=== PATIENT | female | born 1965 | race Caucasian/White ===

== ENCOUNTER → 2016-09-27 | Outpatient (CLI) | payer BC, OTHER | LOC: RAD 03:31 | DX: Z12.31 Encounter for screening mammogram for malignant neoplasm of breast (principal) ==

== ENCOUNTER → 2018-03-19 | Outpatient (CLI) | payer OTHER | LOC: RAD 06:59 | DX: Z12.31 Encounter for screening mammogram for malignant neoplasm of breast (principal) ==

== ENCOUNTER → 2018-04-09 | Outpatient (CLI) | payer OTHER | LOC: ULTRA 03:54 | DX: N60.02 Solitary cyst of left breast (principal); R92.8 Other abnormal and inconclusive findings on diagnostic imaging of breast ==

== ENCOUNTER → 2019-04-26 | Outpatient (CLI) | payer OTHER | LOC: RAD 02:26 | DX: Z12.31 Encounter for screening mammogram for malignant neoplasm of breast (principal) ==

== ENCOUNTER → 2020-05-23 | Outpatient (CLI) | payer OTHER | LOC: BC 07:58 | DX: Z12.31 Encounter for screening mammogram for malignant neoplasm of breast (principal) ==

== ENCOUNTER → 2021-06-26 | Outpatient (CLI) | payer OTHER | LOC: BC 10:04 | DX: Z12.31 Encounter for screening mammogram for malignant neoplasm of breast (principal); N63.42 Unspecified lump in left breast, subareolar; N64.89 Other specified disorders of breast ==

== ENCOUNTER → 2021-06-29 | Outpatient (CLI) | payer OTHER | LOC: ULTRA 14:04 | DX: N63.21 Unspecified lump in the left breast, upper outer quadrant (principal); R92.8 Other abnormal and inconclusive findings on diagnostic imaging of breast; J98.4 Other disorders of lung ==

== ENCOUNTER → 2021-07-02 | Outpatient (CLI) | payer OTHER ==
--- NOTE | 2021-07-04 10:08 | PATH ---
[facility] [address] [place] [address] PATHOLOGY RPT PROCEDURE Name: DILIP EUBANKS Randall Room #: REG [facility]..#: [id number] Admission: 07/02/21 Date of : 67 Discharge: Report #: [id number] Path Case #: [id number] [facility] Accession Number: [id number] . 01 Material submitted: . breast - LT BREAST MASS. Modifiers: left . 01 Diagnosis: Breast "left breast biopsy": - Fibrocystic changes; the largest area measures 0.5 cm in greatest dimension. See comment. (SHA:ferny; 07/03/2021) [facility] 07/03/2021 1420 Local . 01 Comment: A well-defined mass was not identified. The biopsy reveals predominantly fat and benign ducts and lobules Suggest clinical correlation and followup as clinically indicated. 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 Lucas Valdivia. (SHA:ferny; 07/03/2021) . 01 Electronically signed: . Leif Donald MD, Pathologist NPI- [id number] . 01 Gross description: . The specimen is received in formalin, labeled "Dilip Eubanks, LT breast 200 3" and the specimen consists of 5 fatty cylindrical tissues ranging in length from 0.3 cm to 1.7 cm and each averaging 0.2 cm in diameter. The specimen is submitted in toto in A1-A3. The cold ischemic time is less than 60 seconds. The total time in formalin is 10 hours. (VENETIE; 07/02/2021) DKA/DKA 07/02/2021 1605 Local . 01 Pathologist provided ICD-10: N60.12 . 01 CPT . 719477 Specimen Comment: A courtesy copy of this report has been sent to [phone] Specimen Comment: [id number] Specimen Comment: Report sent to , DR JEFF / DR MAN Specimen Comment: A duplicate report has been generated due to demographic updates. Performed at: [address] [place] [address] PATHOLOGY RPT PROCEDURE Name: RAIMUNDODILIP Room #: REG CL José Miguel#: [id number] Admission: 07/02/21 Date of : 67 Discharge: Report #: [id number] Path Case #: [id number] [facility], [place], [place] [id number] MD Leif Donald MD Phone: [phone]
== END | disposition home or self-care (01) ==
LOC: ULTRA 09:05
PROVIDERS: ATTEND Radiology Diagnostic Radiology
DX: N60.12 Diffuse cystic mastopathy of left breast (principal); R92.1 Mammographic calcification found on diagnostic imaging of breast